=== PATIENT | female | born 1975 | race Caucasian/White ===

== ENCOUNTER 2020-05-22 09:35 | Emergency (ER) | payer BC, MEDICAID, OTHER, SELFPAY ==
[~2020-05-22] VITALS: Ht 149.9 cm; Wt 48.2 kg
--- NOTE | 2020-05-22 10:27 | NUR ---
TO [facility] FROM [facility]
[2020-05-22 10:30] LABS: ALANINE AMINOTRANSFERASE 16 U/L (12-78); ALBUMIN 4.5 g/dL (3.4-5.0); ANION GAP 5 mmol/L (5-15); CHLORIDE 108 mmol/L (98-107); CREATININE 0.71 mg/dL (0.55-1.02)
[2020-05-22 10:33] LABS: ALKALINE PHOSPHATASE 87 U/L (45-117); BILIRUBIN,TOTAL 0.6 mg/dL (0.2-1.0)
--- NOTE | 2020-05-22 10:43 | NUR ---
PT CAME IN CO CRAMPING AND NUMBNESS IN HER LEGS FROM THE WAIST DOWN. "I WAS WALKIGN THIS MORNING AND MY LEGS SEIZED UP AND I FELT LIKE I COULDNT MOVE THEM"
[2020-05-22] MEDS ORDERED: DIAZEPAM 5 MG/ML, 2ML IVPush SCH (11:23)
[2020-05-22] MEDS ORDERED: SODIUM CHLORIDE FLUSH 10ML SYR IVF ONE (11:30)
[2020-05-22] MEDS ORDERED: DIAZEPAM 5 MG/ML, 2ML ONE (12:01)
--- NOTE | 2020-05-22 12:07 | NUR ---
PT MEDICATED PER MAR
[2020-05-22 12:46] VITALS: BP 121/87
== END 2020-05-22 13:36 | disposition home or self-care (01) ==
LOC: ED 11:08
DX: M79.661 Pain in right lower leg (principal); M79.662 Pain in left lower leg
CPT/HCPCS: 36415; 80053; 82550; 96374; 99283; J3360

== ENCOUNTER 2020-07-18 19:54 | Emergency (ER) | payer BC, MEDICAID ==
[2020-07-18 20:04] VITALS: BP 127/88
== END 2020-07-18 21:45 | disposition left against medical advice (07) ==
LOC: ED 21:35
DX: R11.0 Nausea (principal); N93.9 Abnormal uterine and vaginal bleeding, unspecified
CPT/HCPCS: 99281